=== PATIENT | male | born 1985 | race African-American/Black ===

== ENCOUNTER 2017-11-19 12:50 | Emergency (ER) | payer BC ==
--- NOTE | 2017-11-19 15:42 | RAD REPORT ---
EXAM DESCRIPTION: RAD - Chest Single View - 11/19/2017 3:22 pm CLINICAL HISTORY: Shortness of breath, cellulitis COMPARISON: August 2010 TECHNIQUE: AP portable chest image was obtained 1512 hours . FINDINGS: Lungs are clear. Heart and vasculature are normal. No measurable pleural effusion and no p neumothorax. No gross bony abnormality seen. No acute aortic findings suspected. IMPRESSION: No acute cardiopulmonary process. No significant change from comparison.
[2017-11-19] MEDS ORDERED: CLINDAMYCIN 600MG/D5W 600 MG/50 ML BAG IV ONE (15:45)
[2017-11-19] MEDS ORDERED: VANCOMYCIN 1 GM/250 ML BAG ONE (15:45)
[2017-11-19] MEDS ORDERED: NA CHLORIDE 0.9% 1,000 ML ONE (15:45)
[2017-11-19 15:48] LABS: Absolute Lymphocytes (CBC) 1.6 K/uL (0.7-4.9); Absolute Monocytes 0.5 K/uL (0.1-1.3); Absolute Neutrophil 5.4 K/uL (1.8-8.0); Basophils % 0.8 % (0-1.3); Eosinophils % 2.1 % (0-4.4); Hematocrit 42.3 % (39.6-49.0); Lymphocytes % 20.9 % (15.3-44.8); MCH 30.8 pg (27.0-35.0); MCV 91.7 fL (80-100); Monocytes % 6.4 % (3.3-12.3); RBC Red Blood Cell Count 4.62 M/uL (4.33-5.43)
--- NOTE | 2017-11-19 15:50 | RAD REPORT ---
EXAM DESCRIPTION: RAD - Knee Right 3 View - 11/19/2017 3:18 pm CLINICAL HISTORY: Knee pain and swelling COMPARISON: None. FINDINGS: No fracture, dislocation or periosteal reaction.Small a moderate joint effusion is present . Surgical defect is present from prior ACL repair. Approximately 10 millimeter calcified intra-artic ular loose body is present. No joint space narrowing. No foreign body or other soft tissue abnormalit y. Edema changes are present anterior and medial to the knee joint. No air or foreign body IMPRESSION: Joint effusion with calcified loose body superior to the patella. Soft tissue edema or contusion change anterior and medial to the knee. No air or foreign body. No acute bone finding.
[2017-11-19 16:06] LABS: Potassium 3.9 mmol/L (3.5-5.1)
--- NOTE | 2017-11-19 18:57 | RAD REPORT ---
EXAM DESCRIPTION: US - Extremity Nonvascular Limited - 11/19/2017 5:44 pm CLINICAL HISTORY: Right knee pain and swelling COMPARISON: None FINDINGS: A 3 x 0.6 x 2.7 centimeter heterogeneous fluid collection is present within the medial lef t knee. IMPRESSION: 3 x 0.6 x 2.7 centimeter heterogeneous fluid collection within the left knee could repre sent an abscess or hematoma.
--- NOTE | 2017-11-19 19:40 | EDPHYS ---
Physician Documentation [facility] Name: Ramos Zamora II Age: 32 yrs Sex: Male : 1985 Arrival Date: 11/19/2017 Time: 12:57 Bed 17 Private MD: ED Physician Christian Webster HPI: 11/19 16:10 This 32 yrs old Black Male presents to ER via Ambulatory with complaints of Knee Pain. snw 16:10 Onset: The symptoms/episode began/occurred gradually, 3 day(s) ago, and became worse snw and became persistent. The patient has not experienced similar symptoms in the past. It is unknown whether or not the patient has recently seen a physician, see PCP in [place]. denies injury. Historical: - Allergies: 13:03 No Known Allergies; aj - Home Meds: 13:03 losartan oral oral [Active]; citalopram oral [Active]; aj - PMHx: 13:03 Hypertension; aj - PSHx: 13:03 Knee surgery; aj - Immunization history:: Adult Immunizations up to date, Last tetanus immunization: < 5 years ago. - Social history:: Smoking status: Patient uses tobacco products, denies chronic smoking, but will smoke occasionally. - Ebola Screening: : Patient negative for fever greater than or equal to 101.5 degrees Fahrenheit, and additional compatible Ebola Virus Disease symptoms Patient denies exposure to infectious person Patient denies travel to an Ebola-affected area in the 21 days before illness onset No symptoms or risks identified at this time. ROS: 16:09 Constitutional: Negative for fever, chills, and weight loss, Eyes: Negative for injury, snw pain, redness, and discharge, ENT: Negative for injury, pain, and discharge, Neck: Negative for injury, pain, and swelling, Cardiovascular: Negative for chest pain, palpitations, and edema, Respiratory: Negative for shortness of breath, cough, wheezing, and pleuritic chest pain, Abdomen/GI: Negative for abdominal pain, nausea, vomiting, diarrhea, and constipation, Back: Negative for injury and pain, : Negative for injury, bleeding, discharge, and swelling, Skin: Negative for injury, rash, and discoloration, Neuro: Negative for headache, weakness, numbness, tingling, and seizure, Psych: Negative for depression, anxiety, suicide ideation, homicidal ideation, and hallucinations. 16:09 MS/extremity: Positive for pain, swelling, warmth. Exam: 16:08 Constitutional: This is a well developed, well nourished patient who is awake, alert, snw and in no acute distress. Head/Face: Normocephalic, atraumatic. Eyes: Pupils equal round and reactive to light, extra-ocular motions intact. Lids and lashes normal. Conjunctiva and sclera are non-icteric and not injected. Cornea within normal limits. Periorbital areas with no swelling, redness, or edema. ENT: Nares patent. No nasal discharge, no septal abnormalities noted. Tympanic membranes are normal and external auditory canals are clear. Oropharynx with no redness, swelling, or masses, exudates, or evidence of obstruction, uvula midline. Mucous membranes moist. Neck: Trachea midline, no thyromegaly or masses palpated, and no cervical lymphadenopathy. Supple, full range of motion without nuchal rigidity, or vertebral point tenderness. No Meningismus. Chest/axilla: Normal chest wall appearance and motion. Nontender with no deformity. No lesions are appreciated. Cardiovascular: Regular rate and rhythm with a normal S1 and S2. No gallops, murmurs, or rubs. Normal PMI, no JVD. No pulse deficits. Respiratory: Lungs have equal breath sounds bilaterally, clear to auscultation and percussion. No rales, rhonchi or wheezes noted. No increased work of breathing, no retractions or nasal flaring. Abdomen/GI: Soft, non-tender, with normal bowel sounds. No distension or tympany. No guarding or rebound. No evidence of tenderness throughout. Back: No spinal tenderness. No costovertebral tenderness. Full range of motion. Skin: Warm, dry with normal turgor. Normal color with no rashes, no lesions, and no evidence of cellulitis. Neuro: Awake and alert, GCS 15, oriented to person, place, time, and situation. Cranial nerves II-XII grossly intact. Motor strength 5/5 in all extremities. Sensory grossly intact. Cerebellar exam normal. Normal gait. Psych: Awake, alert, with orientation to person, place and time. Behavior, mood, and affect are within normal limits. 16:08 Musculoskeletal/extremity: Extremities: grossly normal except: abrasion, pain, swelling, tenderness, ROM: limited active range of motion due to pain, in the right knee -medial, Circulation is intact in all extremities. Sensation intact. Compartment Syndrome exam of affected extremity: is normal. 16:08 Skin: injury, abrasion(s), very small abrasion noted, of the right medial knee. 19:36 Musculoskeletal/extremity: DVT Exam: negative Homans' sign noted on exam, no janine appreciated bluish discoloration, no erythema, no increased warmth, pain, swelling, tenderness. 19:40 Musculoskeletal/extremity: ROM: full passive range of motion, limited active range of janine motion, in the medial aspect of right knee and right knee. Vital Signs: 13:03 BP 137 / 86; Pulse 88; Resp 20; Temp 97.7; Pulse Ox 99% on R/A; Weight 74.84 kg; Height aj 5 ft. 6 in. (167.64 cm); 17:16 BP 114 / 78; Pulse 76; Resp 16; Pulse Ox 96% on R/A; mb3 19:32 BP 123 / 88; Pulse 60; Resp 18; Temp 98.0(O); Pulse Ox 97% on R/A; Pain 5/10; ea 13:03 Body Mass Index 26.63 (74.84 kg, 167.64 cm) aj MDM: 13:34 Patient medically screened. snw 18:09 Data reviewed: vital signs, nurses notes. Transition of care: After a detail discussion snw of the patient's case, care is transferred to Christian Webster MD. 11/19 14:57 Order name: Basic Metabolic Panel; Complete Time: 16:07 11/19 14:57 Order name: Blood Culture Adult (2) community health 11/19 14:57 Order name: C-Reactive Protein; Complete Time: 16:07 11/19 14:57 Order name: CBC with Diff; Complete Time: 16:07 community health 11/19 14:57 Order name: Lactate; Complete Time: 16:11 11/19 14:57 Order name: Procalcitonin; Complete Time: 16:31 11/19 14:57 Order name: Sed Rate; Complete Time: 16:07 11/19 14:57 Order name: Chest Single View XRAY; Complete Time: 15:52 w 11/19 14:57 Order name: Knee Right 3 View XRAY; Complete Time: 15:52 snw 11/19 15:55 Order name: US Extrmty Nonvasular Limited; Complete Time: 19:30 snw 11/19 14:57 Order name: EKG - Nurse/Tech; Complete Time: 15:50 snw 11/19 14:57 Order name: IV Saline Lock - Large Bore; Complete Time: 15:50 snw 11/19 14:57 Order name: Labs collected and sent; Complete Time: 15:50 snw 11/19 14:57 Order name: O2 Per Protocol; Complete Time: 15:03 snw 11/19 14:57 Order name: O2 Sat Monitoring; Complete Time: 15:50 snw 11/19 17:35 Order name: EKG Electrocardiogram; Complete Time: 17:48 EDMS 11/19 19:36 Order name: Knee Immobilizer; Complete Time: 19:58 janine 11/19 19:36 Order name: Crutches; Complete Time: 19:58 janine Administered Medications: 15:50 Drug: Clindamycin 600 mg Route: IVPB; Infused Over: 30 mins; Site: right antecubital; mb3 19:00 Follow up: Response: No adverse reaction; IV Status: Completed infusion ea 15:51 Drug: NS 0.9% 1000 ml Route: IV; Rate: 1 bolus; Site: right antecubital; mb3 19:39 Follow up: Response: No adverse reaction; IV Status: Completed infusion ea 16:24 Not Given (Duplicate Order): NS 0.9% (30 ml/kg) 30 ml/kg IV at bolus once; Sepsis [facility] Protocol 16:30 Drug: vancoMYCIN 1 grams Route: IVPB; Infused Over: 2 hrs; Site: right antecubital; mb3 19:38 Follow up: Response: No adverse reaction; IV Status: Completed infusion ea Disposition: 19:36 Co-signature as Attending Physician, Christian TUCKER I agree with the assessment and peoples hospital plan of care. Disposition: 11/19/17 19:39 Discharged to Home. Impression: Cellulitis of right lower limb, Effusion, right knee. - Condition is Stable. - Discharge Instructions: Knee Effusion, Knee Effusion, [id number], Cellulitis, Adult, Heat Therapy. - Prescriptions for Clindamycin HCl 300 mg Oral Capsule - take 1 capsule by ORAL route every 6 hours for 10 days; 40 capsule. Diclofenac Sodium 75 mg Oral Tablet Sustained Release - take 1 tablet by ORAL route 2 times per day; 30 tablet. - Medication Reconciliation Form, Thank You Letter, Antibiotic Education, Prescription Opioid Use, Work release form form. - Follow up: Private Physician; When: 2 - 3 days; Reason: Recheck today's complaints, Continuance of care, Re-evaluation by your physician. Follow up: Emergency Department; When: As needed; Reason: Worsening of condition. Follow up: Ryan Wong MD; When: 1 - 2 days; Reason: Wound Recheck, Recheck today's complaints, Re-evaluation by your physician. Signatures: Dispatcher [employer] EDHenrietta Mauricio RN Christian Dowling MD MD cha Therrien, Shelly, DIRECTOR OF NATIONAL SALES-C DIRECTOR OF NATIONAL SALES-Csnw Anat Mauricio RN RN ea Barnett, Mark RN RN mb3 Corrections: (The following items were deleted from the chart) 19:40 19:39 11/19/2017 19:39 Discharged to Home. Impression: Cellulitis of right lower limb; janine Effusion, right knee. Condition is Stable. Discharge Instructions: Cellulitis, Adult, Heat Therapy. Prescriptions for Clindamycin HCl 300 mg Oral Capsule - take 1 capsule by ORAL route every 6 hours for 10 days; 40 capsule, Diclofenac Sodium 75 mg Oral Tablet Sustained Release - take 1 tablet by ORAL route 2 times per day; 30 tablet. and Forms are Work release form, Medication Reconciliation Form, Thank You Letter, Antibiotic Education, Prescription Opioid Use. Follow up: Private Physician; When: 2 - 3 days; Reason: Recheck today's complaints, Continuance of care, Re-evaluation by your physician. Follow up: Emergency Department; When: As needed; Reason: Worsening of condition. janine 19:58 19:40 11/19/2017 19:39 Discharged to Home. Impression: Cellulitis of right lower limb; ea Effusion, right knee. Condition is Stable. Discharge Instructions: Cellulitis, Adult, Heat Therapy, Knee Effusion, Knee Effusion, [id number]. Prescriptions for Clindamycin HCl 300 mg Oral Capsule - take 1 capsule by ORAL route every 6 hours for 10 days; 40 capsule, Diclofenac Sodium 75 mg Oral Tablet Sustained Release - take 1 tablet by ORAL route 2 times per day; 30 tablet. and Forms are Work release form, Medication Reconciliation Form, Thank You Letter, Antibiotic Education, Prescription Opioid Use. Follow up: Private Physician; When: 2 - 3 days; Reason: Recheck today's complaints, Continuance of care, Re-evaluation by your physician. Follow up: Emergency Department; When: As needed; Reason: Worsening of condition. Follow up: Ryan Wong; When: 1 - 2 days; Reason: Wound Recheck, Recheck today's complaints, Re-evaluation by your physician. janine
--- NOTE | 2017-11-19 19:40 | ER ---
Nurse's Notes [facility] Name: Ramos Zamora II Age: 32 yrs Sex: Male : 1985 Arrival Date: 11/19/2017 Time: 12:57 Bed 17 Private MD: Diagnosis: Cellulitis of right lower limb;Effusion, right knee Presentation: 11/19 13:01 Presenting complaint: Patient states: Right knee swelling for 2 days. Transition of care: patient was not received from another setting of care. Onset of symptoms was November 17, 2017. Risk Assessment: Do you want to hurt yourself or someone else? Patient reports no desire to harm self or others. Initial Sepsis Screen: Does the patient meet any 2 criteria? No. Patient's initial sepsis screen is negative. Does the patient have a suspected source of infection? No. Patient's initial sepsis screen is negative. Care prior to arrival: None. 13:01 Method Of Arrival: Ambulatory aj 13:01 Acuity: TESHA 4 aj Triage Assessment: 13:03 General: Appears in no apparent distress. comfortable, Behavior is calm, cooperative, aj appropriate for age. Pain: Complains of pain in right knee. Neuro: Level of Consciousness is awake, alert, obeys commands, Oriented to person, place, time, situation, Appropriate for age. Respiratory: Airway is patent Respiratory effort is even, unlabored, Respiratory pattern is regular, symmetrical. Derm: Skin is intact, is healthy with good turgor, Skin is pink, warm \T\ dry. normal. Musculoskeletal: Reports pain in right knee. Historical: - Allergies: 13:03 No Known Allergies; aj - Home Meds: 13:03 losartan oral oral [Active]; citalopram oral [Active]; aj - PMHx: 13:03 Hypertension; aj - PSHx: 13:03 Knee surgery; aj - Immunization history:: Adult Immunizations up to date, Last tetanus immunization: < 5 years ago. - Social history:: Smoking status: Patient uses tobacco products, denies chronic smoking, but will smoke occasionally. - Ebola Screening: : Patient negative for fever greater than or equal to 101.5 degrees Fahrenheit, and additional compatible Ebola Virus Disease symptoms Patient denies exposure to infectious person Patient denies travel to an Ebola-affected area in the 21 days before illness onset No symptoms or risks identified at this time. Screenin:42 Abuse screen: Denies threats or abuse. Nutritional screening: No deficits noted. mb3 Tuberculosis screening: No symptoms or risk factors identified. Fall Risk None identified. Assessment: 13:39 General: Appears in no apparent distress. comfortable, Behavior is calm, cooperative, mb3 appropriate for age. Pain: Complains of pain in right knee. Neuro: No deficits noted. Cardiovascular: No deficits noted. Respiratory: No deficits noted. GI: No deficits noted. : No deficits noted. Derm: Wound noted right knee Wound is swelling, warm to touch, appears inflammed. Abscess located on right knee. Musculoskeletal: Capillary refill < 3 seconds, Swelling present in right knee Reports pain in right knee. 17:18 Reassessment: No changes from previously documented assessment. Patient and/or family mb3 updated on plan of care and expected duration. Pain level reassessed. Patient is alert, oriented x 3, equal unlabored respirations, skin warm/dry/pink. 19:31 General: Appears in no apparent distress. Behavior is calm, cooperative, appropriate ea for age. Pain: Complains of pain in right knee Pain does not radiate. Pain currently is 5 out of 10 on a pain scale. Neuro: Level of Consciousness is awake, alert, obeys commands, Oriented to person, place, time, situation. Cardiovascular: Patient's skin is warm and dry. Respiratory: Airway is patent Respiratory effort is even, unlabored, Respiratory pattern is regular, symmetrical. GI: No signs and/or symptoms were reported involving the gastrointestinal system. : No signs and/or symptoms were reported regarding the genitourinary system. Derm: Wound noted right knee Wound is abrasion. Musculoskeletal: Swelling present in right knee. 19:56 Reassessment: Patient and/or family updated on plan of care and expected duration. Pain ea level reassessed. Patient is alert, oriented x 3, equal unlabored respirations, skin warm/dry/pink. Discharge instruction given to patient,verbalized the understanding of instruction. Vital Signs: 13:03 BP 137 / 86; Pulse 88; Resp 20; Temp 97.7; Pulse Ox 99% on R/A; Weight 74.84 kg; Height aj 5 ft. 6 in. (167.64 cm); 17:16 BP 114 / 78; Pulse 76; Resp 16; Pulse Ox 96% on R/A; mb3 19:32 BP 123 / 88; Pulse 60; Resp 18; Temp 98.0(O); Pulse Ox 97% on R/A; Pain 5/10; ea 13:03 Body Mass Index 26.63 (74.84 kg, 167.64 cm) aj ED Course: 12:57 Patient arrived in ED. jb7 13:02 Triage completed. aj 13:03 Arm band placed on left wrist. Patient placed in waiting room, Patient notified of wait aj time. 13:31 Briseida Winchester FNP-C is [facility]. snw 13:31 Joseph Guevara MD is Attending Physician. snw 13:34 Reji Garner, SAVANNAH is Primary Nurse. mb3 13:42 Patient has correct armband on for positive identification. mb3 15:17 X-ray completed. Portable x-ray completed in exam room. Patient tolerated procedure ag1 well. 15:17 Chest Single View XRAY In Process Unspecified. EDMS 15:17 Knee Right 3 View XRAY In Process Unspecified. EDMS 15:35 Inserted saline lock: 20 gauge in right antecubital area, using aseptic technique. mb3 Blood collected. 15:57 EKG done, by endoscope technician. reviewed by Briseida MEDINA. sm3 17:02 US Extrmty Nonvasular Limited In Process Unspecified. EDMS 17:03 Ultrasound completed. hr 18:38 Attending Physician role handed off by Joseph Guevara MD rn 18:38 Christian Webster MD is Attending Physician. rn 19:39 Ryan Wong MD is Referral Physician. janine 19:57 No provider procedures requiring assistance completed. IV discontinued, intact, ea bleeding controlled, No redness/swelling at site. Pressure dressing applied. Administered Medications: 15:50 Drug: Clindamycin 600 mg Route: IVPB; Infused Over: 30 mins; Site: right antecubital; mb3 19:00 Follow up: Response: No adverse reaction; IV Status: Completed infusion ea 15:51 Drug: NS 0.9% 1000 ml Route: IV; Rate: 1 bolus; Site: right antecubital; mb3 19:39 Follow up: Response: No adverse reaction; IV Status: Completed infusion ea 16:24 Not Given (Duplicate Order): NS 0.9% (30 ml/kg) 30 ml/kg IV at bolus once; Sepsis [facility] Protocol 16:30 Drug: vancoMYCIN 1 grams Route: IVPB; Infused Over: 2 hrs; Site: right antecubital; mb3 19:38 Follow up: Response: No adverse reaction; IV Status: Completed infusion ea Outcome: 19:39 Discharge ordered by . janine 19:57 Discharged to home with crutches. ea 19:57 Condition: improved 19:57 Discharge instructions given to patient, Instructed on discharge instructions, follow up and referral plans. medication usage, Demonstrated understanding of instructions, follow-up care, medications, Prescriptions given X 2. 19:58 Patient left the ED. ea Signatures: Dispatcher [employer] EDHenrietta Mauricio RN RN aj Anderson, Corey, MD MD cha Therrien, Shelly, LOG PEELER-C LOG PEELER-Csnw Mary Larson Roman, MD MD rn Gallaway, Ashley ag1 Daniel Gong jb7 Anat Mauricio RN RN ea Barnett, Mark, RN RN mb3 Linda Garnica 3
[2017-11-19 20:07] VITALS: BP 123/88; TEMP 98; O2SAT 97
--- NOTE | 2017-11-20 06:49 | EKG ---
Test Date: 2017-11-19 Test Time: 15:50:10 Manager Of Employee Relations: LESLIE MEASUREMENT RESULTS: Intervals: Rate: 65 MD: 184 QRSD: 80 QT: 396 QTc: 411 [place]: P: 32 MD: 184 QRS: 46 T: 25 INTERPRETIVE STATEMENTS: Normal sinus rhythm Normal ECG Compared to ECG 09/18/2010 15:40:45 No significant changes Electronically Signed On 11-20-17 06:48:38 CDT by Sb Can[place]ola
== END 2017-11-19 19:58 | disposition home or self-care (01) ==
LOC: ER 12:50
DX: M25.461 Effusion, right knee (principal); L03.115 Cellulitis of right lower limb; I10 Essential (primary) hypertension; Z72.0 Tobacco use
CPT/HCPCS: 36415; 71045; 76882; 80048; 83605; 84145; 85025; 85652; 86140; 87040; 93005; 96365; 96366; 99284; J3370; J7030